=== PATIENT | female | born 1940 | race Caucasian/White ===

== ENCOUNTER 2016-11-12 20:01 | Emergency (ER) | payer MEDICARE ==
[2016-11-12] MEDS ORDERED: ALBUTEROL SULFATE 5MG/ML INHALANT 20 ML BOT ONE (22:30)
[2016-11-12] MEDS ORDERED: IPRATROPIUM BROMIDE 0.5 MG/2.5 ML DOSE ONE (22:30)
[2016-11-12] MEDS ORDERED: SODIUM CL FOR INHALATION 3 ML DOSE ONE (22:30)
[2016-11-12] MEDS ORDERED: PREDNISONE 20 MG TABLET ONE (22:50)
[2016-11-12] MEDS ORDERED: ACETAMINOPHEN 500 MG TABLET ONE (23:19)
--- NOTE | 2016-11-13 07:44 | RAD ---
Exam: Two-view chest COMPARISON: None INDICATION: Cough and congestion. FINDINGS: PA and lateral views of the chest were obtained. Cardiac silhouette is at the upper limits of normal. Lungs are hyperinflated with some flattening of the hemidiaphragms on the lateral view suggesting underlying obstructive airways disease. There is mild bronchial wall thickening centrally. There is no focal airspace disease or pleural effusion. Minor left basilar scarring is noted. IMPRESSION: Mild central bronchial wall thickening and hyperinflation, however there is no radiographic evidence of pneumonia.
== END 2016-11-12 23:55 | disposition home or self-care (01) ==
LOC: ED 20:01
DX: J20.9 Acute bronchitis, unspecified (principal); J06.9 Acute upper respiratory infection, unspecified; J45.909 Unspecified asthma, uncomplicated; E11.9 Type 2 diabetes mellitus without complications; I10 Essential (primary) hypertension
CPT/HCPCS: 71020; 87804; 94644; 99283 ×2; J7645; J7512; A9270 ×2